=== PATIENT | male | born 1945 | race Caucasian/White ===

== ENCOUNTER 2024-06-13 23:22 | Inpatient (IN) ==
[2024-06-14 00:49] LABS: Basophils # (Auto) 0.01 K/mcL (0.00-0.30); Basophils % (Auto) 0.2 % (0.0-2.0); Eosinophils # (Auto) 0.05 K/mcL (0.00-0.70); Eosinophils % (Auto) 0.9 % (0.0-7.0); Hematocrit 44.1 % (40.1-51.0); Hemoglobin 14.7 g/dL (13.7-17.5); Lymphocytes # (Auto) 1.53 K/mcL (1.50-4.80); Mean Cell Volume 91.9 fL (80.0-100.0); Mean Corpuscular HGB Conc 33.3 g/dL (31.0-36.0); Mean Platelet Volume 10.5 fL (8.8-12.5); Monocytes # (Auto) 0.48 K/mcL (0.10-0.90); Monocytes % (Auto) 8.5 % (1.0-12.0); Neutrophils % (Auto) 63.4 % (38.0-78.0); Platelet Count 205 K/mcL (140-440); Red Cell Distribution Width 13.2 % (11.5-14.5); WBC 5.7 K/mcL (4.5-11.0)
[2024-06-14 01:09] LABS: ALT/SGPT 9 U/L (<40); AST/SGOT 14 U/L (<40); Albumin/Globulin Ratio 1.7 (1.0-2.3); Alkaline Phosphatase 78 U/L (39-117); Bilirubin,Total 0.9 mg/dL (0.1-1.0); Blood Urea Nitrogen 16 mg/dL (8-23); Calcium 9.2 mg/dL (8.6-10.4); Carbon Dioxide 21 mmol/L (22-30); Chloride 103 mmol/L (96-108); Globulin 2.4 gm/dL (2.2-3.7); Glomerular Filtration Rate 90; Glucose 120 mg/dL (70-105); Potassium 3.2 mmol/L (3.3-5.1); Sodium 139 mmol/L (133-145)
[2024-06-14] MEDS: FUROSEMIDE 40 MG/4 ML VIAL IV ONE (02:07)
[2024-06-14] MEDS: cefTRIAXone 2 GM in DEXTROSE 5% IN WATER 50 ML IV ONE (02:07)
[2024-06-14] MEDS: AZITHROMYCIN 500 MG in 0.9 % SODIUM CHLORIDE 250 ML IV ONE (03:00)
[2024-06-14] MEDS: POTASSIUM CHLORIDE 20 MEQ TABLET PO ONE (08:43)
[2024-06-14] MEDS ORDERED: MAG HYDROX/AL HYDROX/SIMETH 30 ML ORAL.SUSP PO PRN (11:14)
[2024-06-14] MEDS ORDERED: ACETAMINOPHEN 325 MG TABLET PO PRN (11:14)
[2024-06-14] MEDS ORDERED: CALCIUM CARBONATE 500 MG TAB.CHEW CHEWED PRN (11:14)
[2024-06-14] MEDS ORDERED: MAGNESIUM HYDROXIDE 30 ML ORAL.SUSP PO PRN (11:14)
[2024-06-14] MEDS ORDERED: ONDANSETRON 4 MG ODT TABLET SL PRN (11:14)
[2024-06-14] MEDS ORDERED: HYDROcodone/APAP 5/325MG TABLET PO PRN (11:14)
[2024-06-14] MEDS ORDERED: ONDANSETRON 4 MG/2 ML VIAL IV PRN (11:14)
[2024-06-14] MEDS ORDERED: ALBUTEROL SULFATE 2.5 MG/3 ML NEBULIZER NEB PRN (11:14)
[2024-06-14] MEDS: 0.9 % SODIUM CHLORIDE 10 ML SYRINGE IV SCH (16:20)
[2024-06-14] MEDS: POTASSIUM CHLORIDE 20 MEQ TABLET PO SCH (17:53)
[2024-06-14] MEDS: CARVEDILOL 3.125 MG TABLET PO SCH (17:54)
[2024-06-14] MEDS: DOCUSATE SODIUM 100 MG CAPSULE PO SCH (20:17)
[2024-06-14] MEDS: SENNOSIDES 1 TABLET PO SCH (20:17)
[2024-06-14] MEDS: FUROSEMIDE 40 MG/4 ML VIAL IV SCH (20:17)
[2024-06-15 07:17] LABS: HDL Cholesterol 56 mg/dL (>40); LDL Cholesterol,Calculated 134 mg/dL (<100); Non-HDL Cholesterol 149 mg/dL (<130); Triglycerides 73 mg/dL (<150)
[2024-06-15 07:24] LABS: Blood Urea Nitrogen 26 mg/dL (8-23); Calcium 9.3 mg/dL (8.6-10.4); Carbon Dioxide 24 mmol/L (22-30); Chloride 111 mmol/L (96-108); Glomerular Filtration Rate 85; Glucose 108 mg/dL (70-105); Sodium 144 mmol/L (133-145)
[2024-06-15] MEDS: ASPIRIN 81 MG TAB.CHEW CHEWED SCH (08:32)
[2024-06-15] MEDS: ENOXAPARIN 40 MG/0.4 ML SYRINGE SQ SCH (08:32)
[2024-06-15] MEDS: SPIRONOLACTONE 25 MG TABLET PO SCH (13:58)
[2024-06-15] MEDS: LOSARTAN 25 MG TABLET PO SCH (13:58)
[2024-06-16 06:46] LABS: Blood Urea Nitrogen 29 mg/dL (8-23); Calcium 9.4 mg/dL (8.6-10.4); Carbon Dioxide 22 mmol/L (22-30); Chloride 109 mmol/L (96-108); Glomerular Filtration Rate 85; Glucose 111 mg/dL (70-105); Potassium 4.7 mmol/L (3.3-5.1); Sodium 141 mmol/L (133-145)
[2024-06-16] MEDS: FUROSEMIDE 40 MG TABLET PO SCH (08:38)
== END 2024-06-16 14:56 | disposition home or self-care (01) | DRG 293 ==
LOC: ED 23:22 → MEDSUR 06-14 10:59
PROVIDERS: ADMIT Internal Medicine; ATTEND Internal Medicine